=== PATIENT | female | born 1970 | race American Indian/Alaskan Native ===

== ENCOUNTER 2018-11-08 14:36 | Emergency (ER) | payer SELFPAY ==
--- NOTE | 2018-11-08 15:11 | Event Note ---
ED Screening Note ED Screening Note: pt presents with N/V that began last night no diarrhea +urinary frequency normal BM today LNMP: october 29 PMHx breast CA -in remission no allergies to meds This initial assessment/diagnostic orders/clinical plan/treatment(s) is/are subject to change based on patients health status, clinical progression and re- assessment by fellow clinical providers in the ED. Further treatment and workup at subsequent clinical providers discretion. Patient/guardian urged not to elope from the ED as their condition may be serious if not clinically assessed and managed. Initial orders include: labs, UA
[2018-11-08 15:14] VITALS: BP 152/87
[2018-11-08 15:45] LABS: Basophils # (Auto) 0.1 K/mm3 (0.0-0.1); Basophils % (Auto) 0.7 % (0.0-1.8); Eosinophils # (Auto) 0.4 K/mm3 (0.0-0.4); Eosinophils % (Auto) 2.9 % (0.0-4.3); Hematocrit 37.1 % (30.3-42.9); Hemoglobin 12.5 gm/dl (10.1-14.3); Lymphocytes % (Auto) 26.7 % (13.4-35.0); Mean Corpuscular HGB Conc 34 % (30-34); Mean Corpuscular Volume 91 fl (79-97); Monocytes # (Auto) 1.2 K/mm3 (0.0-0.8); Monocytes % (Auto) 8.2 % (0.0-7.3); Platelet Count 214 K/mm3 (140-440); Red Blood Count 4.11 M/mm3 (3.65-5.03); Red Cell Distribution Width 13.6 % (13.2-15.2)
[2018-11-08] MEDS ORDERED: MORPHINE ONE (15:56)
[2018-11-08 16:00] LABS: Alanine Aminotransferase 10 units/L (7-56); Albumin 4.3 g/dL (3.9-5); BUN/Creatinine Ratio 19; Blood Urea Nitrogen 13 mg/dL (7-17); Calcium 8.9 mg/dL (8.4-10.2); Hemolysis Index 2
[2018-11-08 16:50] LABS: Bacteria,Urine 2+ /HPF (Negative); Bilirubin,Urine NEG (Negative); Blood,Urine LG (Negative); Color,Urine Yellow (Yellow); Mucus,Urine 1+ /HPF; Urobilinogen,Urine < 2.0 mg/dL (<2.0)
[2018-11-08 16:51] LABS: RBC,Urine > 182.0 /HPF (0.0-6.0); WBC,Urine > 182.0 /HPF (0.0-6.0)
--- NOTE | 2018-11-08 16:58 | Emergency Department Report ---
Vomiting/Diarrhea - HPI Chief Complaint: Nausea/Vomiting/Diarrhea Stated Complaint: NAUSEA/VOMITING/STOMACH DISCOMFORT Time Seen by Provider: 11/08/18 15:09 Duration: Today Severity: mild Nausea/Vomiting Severity: Mild Diarrhea Severity: None Pain Severity: None Symptoms: Yes Able to Tolerate Fluids, No Watery Diarrhea, No Bloody diarrhea, No Fever, No Recent Unusual Foods, No Recent Untreated Water, No Recent use of Antibiotics, No Family w/ Similar Symptoms, No Contacts w/ Similar Symptoms, No Rash, No Hematuria, No Recent URI Symptoms Other History: Is a 48-year-old female presents to ED complaining of nausea that started this morning. Patient had one episode of vomiting that's it. Patient denies any unusual meals. Patient denies abdominal pain, fever, diarrhea or any other symptoms. Patient states that she feels better after throwing up earlier today ED Review of Systems ROS: Stated complaint: NAUSEA/VOMITING/STOMACH DISCOMFORT Other details as noted in HPI Comment: All other systems reviewed and negative ED Past Medical Hx - Past Medical History Previous Medical History?: Yes Hx Hypertension: No Hx CVA: No Hx Heart Attack/AMI: No Hx Congestive Heart Failure: No Hx Diabetes: No Hx Deep Vein Thrombosis: No Hx Pulmonary Embolism: No Hx GERD: No Hx Liver Disease: No Hx Renal Disease: No Hx of Cancer: Yes (breast cancer) Hx Sickle Cell Disease: No Hx Arthritis: No Hx Headaches / Migraines: No Hx Seizures: No Hx Kidney Stones: No Hx Psychiatric Treatment: No Hx Asthma: No Hx COPD: No Hx Tuberculosis: No Hx Dementia: No Hx HIV: No Additional medical history: lumpectomy - Surgical History Past Surgical History?: Yes Hx Coronary Stent: No Hx Open Heart Surgery: No Hx Pacemaker: No Hx Internal Defibrillator: No Hx Cholecystectomy: No Hx Appendectomy: No Hx Breast Surgery: No Additional Surgical History: lumpectomy - Social History Smoking Status: Never Smoker Substance Use Type: None - Medications Home Medications: Home Medications Medication Instructions Recorded Confirmed Last Taken Type Famotidine [Pepcid] 20 mg PO BID #20 tablet 11/08/18 Unknown Rx Ondansetron [Zofran ODT TAB] 8 mg PO Q12HR #30 tab.rapdis 11/08/18 Unknown Rx Vomiting Diarrhea Exam - Exam General: Vital signs noted. No distress. Alert and acting appropriately. HEENT: Yes Moist Mucous Membranes, No Pharyngeal Erythema, No Pharyngeal Exudates, No Rhinorrhea, No Conjuctival Injection, No Frontal Tenderness, No Maxillary Tenderness Neck: No Adenopathy, No Rigidity Lungs: Yes Clear Lung Sounds, Yes Good Air Exchange, No Wheezes, No Stridor, No Cough, No Nasal Flaring, No Retractions, No Use of Accessory Muscles Heart exam: Regular: Yes, Murmur: No, Tachycardia: No Abdomen: Tenderness: No, Peritoneal Signs: No, Distention: No, Hyperactive Bowel sounds: No Skin exam: Rash: No, Edema: No, Normal turgor: Yes Neurologic: Alert and oriented, no deficits. Musculoskeletal: Unremarkable. ED Course Vital Signs 11/08/18 15:10 Temperature 97.6 F Pulse Rate 96 H Respiratory 16 Rate Blood Pressure 152/87 [Left] O2 Sat by Pulse 99 Oximetry ED Medical Decision Making - Lab Data Result diagrams: 11/08/18 15:26 11/08/18 15:26 Laboratory Last Values WBC 14.9 K/mm3 (4.5-11.0) H 11/08/18 15:26 RBC 4.11 M/mm3 (3.65-5.03) 11/08/18 15:26 Hgb 12.5 gm/dl (10.1-14.3) 11/08/18 15:26 Hct 37.1 % (30.3-42.9) 11/08/18 15:26 MCV 91 fl (79-97) 11/08/18 15:26 MCH 30 pg (28-32) 11/08/18 15: MCHC 34 % (30-34) 11/08/18 15:26 RDW 13.6 % (13.2-15.2) 11/08/18 15:26 Plt Count 214 K/mm3 (140-440) 11/08/18 15:26 Lymph % (Auto) 26.7 % (13.4-35.0) 11/08/18 15:26 [place] % (Auto) 8.2 % (0.0-7.3) H 11/08/18 15:26 Eos % (Auto) 2.9 % (0.0-4.3) 11/08/18 15: Baso % (Auto) 0.7 % (0.0-1.8) 11/08/18 15:26 Lymph # 4.0 K/mm3 (1.2-5.4) 11/08/18 15:26 [place] # 1.2 K/mm3 (0.0-0.8) H 11/08/18 15:26 Eos # 0.4 K/mm3 (0.0-0.4) 11/08/18 15:26 Baso # 0.1 K/mm3 (0.0-0.1) 11/08/18 15:26 Seg Neutrophils % 61.5 % (40.0-70.0) 11/08/18 15:26 Seg Neutrophils # 9.2 K/mm3 (1.8-7.7) H 11/08/18 15:26 Sodium 142 mmol/L (137-145) 11/08/18 15:26 Potassium 3.7 mmol/L (3.6-5.0) 11/08/18 15:26 Chloride 103.5 mmol/L (98-107) 11/08/18 15:26 Carbon Dioxide 28 mmol/L (22-30) 11/08/18 15:26 14 mmol/L 11/08/18 15:26 BUN 13 mg/dL (7-17) 11/08/18 15:26 0.7 mg/dL (0.7-1.2) 11/08/18 15:26 Estimated GFR > 60 ml/min 11/08/18 15:26 19 % 11/08/18 15:26 Glucose 104 mg/dL (65-100) H 11/08/18 15:26 Calcium 8.9 mg/dL (8.4-10.2) 11/08/18 15:26 0.20 mg/dL (0.1-1.2) 11/08/18 15:26 AST 16 units/L (5-40) 11/08/18 15:26 ALT 10 units/L (7-56) 11/08/18 15:26 79 units/L (35-129) 11/08/18 15:26 7.7 g/dL (6.3-8.2) 11/08/18 15:26 4.3 g/dL (3.9-5) 11/08/18 15:26 1.3 % 11/08/18 15:26 18 units/L (13-60) 11/08/18 15:26 HCG, Qual Negative (Negative) 11/08/18 15:26 Yellow (Yellow) 11/08/18 16:30 Cloudy (Clear) 11/08/18 16:30 6.0 (5.0-7.0) 11/08/18 16:30 Ur Specific [place] 1.023 (1.003-1.030) 11/08/18 16:30 100 mg/dl mg/dL (Negative) 11/08/18 16:30 Neg mg/dL (Negative) 11/08/18 16:30 Neg mg/dL (Negative) 11/08/18 16:30 Lg (Negative) 11/08/18 16:30 Pos (Negative) 11/08/18 16:30 Neg (Negative) 11/08/18 16:30 < 2.0 mg/dL (<2.0) 11/08/18 16:30 Ur Leukocyte Esterase Lg (Negative) 11/08/18 16:30 > 182.0 /HPF (0.0-6.0) H 11/08/18 16:30 > 182.0 /HPF (0.0-6.0) 11/08/18 16:30 U Epithel Cells (Auto) 11.0 /HPF (0-13.0) 11/08/18 16:30 2+ /HPF (Negative) 11/08/18 16:30 3+ /HPF 11/08/18 16:30 1+ /HPF 11/08/18 16:30 - Medical Decision Making 48-year-old female presents with acute gastroenteritis. CBC, CMP, urinalysis, tender in the mid normal limits. Discussed findings with the patient. Discussed with patient and the symptoms initially lasted up to 2 weeks. Signed discussed follow-up with primary care physician. Vital signs are normal patient is in no acute distress. Discussed with patient his symptoms worsen to or new symptoms arise to return to ED immediately. Critical care attestation.: If time is entered above; I have spent that time in minutes in the direct care of this critically ill patient, excluding procedure time. ED Disposition Clinical Impression: Gastroenteritis Disposition: DC-01 TO HOME OR SELFCARE Is pt being admited?: No Does the pt Need Aspirin: No Condition: Stable Instructions: Gastroenteritis (ED), Acute Nausea and Vomiting (ED) Additional Instructions: Make sure to follow up with the primary care physician as discussed. Take all your medications as you've been prescribed. If you have any worsening symptoms or develop new symptoms please return to ED immediately. Prescriptions: Famotidine [Pepcid] 20 mg PO BID #20 tablet Ondansetron [Zofran ODT TAB] 8 mg PO Q12HR #30 [email or web address] Referrals: [facility] [Outside] - 3-5 Days [facility] [Outside] - 3-5 Days Forms: Accompanied Note, Work/School Release Form(ED) Time of Disposition: 17:06
== END 2018-11-08 17:10 | disposition home or self-care (01) ==
LOC: ED 14:36
DX: K52.9 Noninfective gastroenteritis and colitis, unspecified (principal); Z85.3 Personal history of malignant neoplasm of breast; Z98.890 Other specified postprocedural states; Z79.899 Other long term (current) drug therapy
CPT/HCPCS: 36415; 80053; 81001; 83690; 84703; 85025; 99283; J2270